=== PATIENT | male | born 1960 | race Caucasian/White ===

== ENCOUNTER 2018-09-30 10:35 | Emergency (ER) | payer OTHER ==
[~2018-09-30] VITALS: Ht 172.7 cm; Wt 72.6 kg
[~2018-09-30 10:35] MED LIST: ACTIGALL300 MG; DORYX100 MG PO; ENALAPRIL MALEAT5 MG; PREDNISONE10 MG PO; PREDNISONE20 MG PO; Pepcid 20 MG TABLET PO; TOPROL XL25 MG
[2018-09-30] MEDS ORDERED: DELSYM30 MG/5 M1 PO (13:08)
== END 2018-09-30 13:57 | disposition home or self-care (01) ==
LOC: ER 10:35
DX: J11.1 Influenza due to unidentified influenza virus with other respiratory manifestations (principal)

== ENCOUNTER 2022-05-21 09:26 | Emergency (ER) | payer OTHER ==
[~2022-05-21] VITALS: Ht 172.7 cm; Wt 74.8 kg
[~2022-05-21 09:26] MED LIST changes: +DELSYM30 MG/5 M1 PO
== END 2022-05-21 16:38 | disposition home or self-care (01) ==
LOC: ER 09:26
DX: K52.9 Noninfective gastroenteritis and colitis, unspecified (principal); K57.90 Diverticulosis of intestine, part unspecified, without perforation or abscess without bleeding; K62.5 Hemorrhage of anus and rectum; R10.32 Left lower quadrant pain; K40.90 Unilateral inguinal hernia, without obstruction or gangrene, not specified as recurrent; I10 Essential (primary) hypertension

== ENCOUNTER 2024-06-24 10:19 | Emergency (ER) | payer OTHER ==
[~2024-06-24] VITALS: Ht 172.7 cm; Wt 72.6 kg
[2024-06-24] MEDS ORDERED: ORPHENADRINE CITRATE 30 MG/ML AMPUL IM STA (12:03)
[2024-06-24] MEDS ORDERED: KETOROLAC TROMETHAMINE 30 MG VIAL IM STA (12:03)
[2024-06-24] MEDS ORDERED: KETOROLAC TROMETHAMINE 30 MG VIAL ONE (12:07)
[2024-06-24] MEDS ORDERED: ORPHENADRINE CITRATE 30 MG/ML AMPUL ONE (12:08)
== END 2024-06-24 14:00 | disposition home or self-care (01) ==
LOC: ER 10:20
DX: M62.830 Muscle spasm of back (principal)

== ENCOUNTER 2025-09-21 11:13 | Emergency (ER) | payer OTHER ==
[~2025-09-21] VITALS: Ht 167.6 cm; Wt 74.8 kg
[2025-09-21] MEDS ORDERED: 0.9 % SODIUM CHLORIDE 1,000 ML IV SCH (13:45)
[2025-09-21] MEDS ORDERED: DEXAMETHASONE SODIUM PHOSPHATE 4 MG/ML VIAL IV ONE (13:45)
[2025-09-21] MEDS ORDERED: ONDANSETRON HCL 4 MG in 0.9 % SODIUM CHLORIDE 50 ML IV ONE (13:45)
[2025-09-21] MEDS ORDERED: MORPHINE SULFATE 4 MG/ML CARTRIDGE IV ONE (13:45)
[2025-09-21] MEDS ORDERED: FAMOtidine 10 MG/ML (4ML VIAL) IV PUSH ONE (13:45)
[2025-09-21 15:06] LABS: ALT/SGPT 46.0 U/L (12-78); AST/SGOT 35.0 U/L (15-37); BILIRUBIN TOTAL 3.78 mg/dL (0.3-1.2); BUN CREA RATIO 12.0 (7.0-25.0); CREATININE SERUM 0.86 mg/dL (0.70-1.30); GFR 88.7; GLOBULINA 4.3 G/DL (2.4-3.5); GLUCOSE FASTING 119.0 mg/dL (65-100); OSMOLALITY SERUM 278.0 MOSM/KG (275-295)
[2025-09-21 15:07] LABS: BASO % 0.3 % (0.1-1.2); EOS # 0.01 (0.04-0.54); EOS % 0.1 % (0.7-7.0); LYMPH # 0.52 (1.18-3.74); LYMPH % 4.8 % (19.3-53.1); MEAN PLATELET VOLUME 11.90 fl (9.4-12.4); MONO # 0.66 (0.24-0.82); MONO % 6.1 % (4.7-12.5); NEUT # 9.51 (1.56-6.13); NEUT % 88.2 % (34.0-71.1); RED CELL DISTRIBUTION WIDTH 13.6 % (11.6-14.4)
[2025-09-21 15:09] LABS: URINE APPEARANCE Clear; URINE BILIRRUBIN Negative (NEGATIVE); URINE COLOR Yellow; URINE GLUCOSE Negative (NEGATIVE); URINE KETONE 15 (NEGATIVE); URINE LEUKOCYTE Negative; URINE NITRATE Negative; URINE PROTEIN Negative (NEGATIVE); URINE UROBILINOGEN 1.0 E.U./dl
[2025-09-21 15:14] LABS: URINE BACTERIA 11.9 uL (0.0-1933); URINE RBC 11.7 uL (0.0-20.8); URINE WBC 8.4 uL (0.0-23.2)
[2025-09-21 15:16] LABS: INR 1.03
[2025-09-21 15:20] LABS: URINE BLOOD Trace; URINE CAST 0.14 uL (0.0-1.40); URINE EPITHELIAL CELLS 1.0 uL (0.0-38.8)
[2025-09-21] MEDS ORDERED: PROTONIX40 MG PO (17:56)
[2025-09-21] MEDS ORDERED: DICY20TA PO (17:56)
[2025-09-21] MEDS ORDERED: PEPCID AC20 MG PO (17:56)
== END 2025-09-21 19:12 | disposition home or self-care (01) ==
LOC: ER 11:14
PROVIDERS: General Practice
DX: R11.2 Nausea with vomiting, unspecified (principal); R07.89 Other chest pain